=== PATIENT | female | born 2000 ===

== ENCOUNTER 2025-03-12 08:09 | Observation (INO) | payer BC ==
[2025-03-12] MEDS ORDERED: Ondansetron PF 4 MG/2 ML Vial ONE ×2 (08:49→11:54)
[2025-03-12 09:00] LABS: CAUTI Indications for Culture Pelvic or flank pain; Glucose, Urine (Dipstick) Normal (Negative); Leukocyte 75 Leu/uL (Negative); Protein, Urine (Dipstick) Negative (Neg-Trace); Specific Gravity, Urine 1.027 (1.002-1.036); Yeast-Budding Rare HPF (None Seen)
[2025-03-12 09:01] LABS: Bacteria/HPF 1+ HPF (None Seen); Pregnancy Test - Urine (BHCG) Negative (Negative); Pregu Control Background? CLEAR/WHITE (CLR/WHITE); Pregu Control Bar Appear? YES (CONTROL BAR); Urine Culture Reflex No No
[2025-03-12 09:01] LABS: #Basophils 0.05 10x3/uL (0.0-0.2); #Eosinophils Less than 0.03 10x3/uL (0.0-0.7); #Monocytes 1.55 10x3/uL (0.11-0.59); #Neutrophils 19.27 10x3/uL (1.40-6.50); %Basophils 0.2 % (0.0-1.0); %Eosinophils 0.1 % (0.0-10.0); %Lymphocytes 8.0 % (21.0-51.0); %Monocytes 6.8 % (0.0-10.0); %Neutrophils 84.4 % (42.0-75.0); Hematocrit 39.0 % (36.0-47.0); Hemoglobin 13.2 g/dL (12.0-16.0); Mean Corpuscular Hemoglobin 29.4 pg (27.0-31.0); Mean Corpuscular Volume 86.9 fL (78.0-98.0); Platelet Count 328 10x3/uL (130-400); Red Blood Cell (RBC) Count 4.49 mill/uL (4.20-5.40); White Blood Cell (WBC) Count 22.83 10x3/uL (4.8-10.8)
[2025-03-12 09:23] LABS: ALT (SGPT) 13 U/L (Less than 34); AST (SGOT) 31 U/L (11-34); Albumin 4.4 g/dL (3.1-4.5); Alkaline Phosphatase 73 U/L (40-110); Anion Gap 13 mmol/L (10-20); BUN (Urea Nitrogen) 10 mg/dL (7.0-18.7); Bilirubin, Total 0.6 mg/dL (0.3-1.2); Calc. Creatinine Clearance 0 mL/min (70-130); Calcium 9.3 mg/dL (7.8-10.44); Carbon Dioxide 24 mmol/L (22-29); Chloride 102 mmol/L (98-107); Globulin 3.4 g/dL (2.4-3.5); Glucose 134 mg/dL (70-105); Potassium 3.8 mmol/L (3.5-5.1); Sodium 135 mmol/L (136-145)
[2025-03-12] MEDS ORDERED: Ondansetron PF 4 MG/2 ML Vial IVP PRN (10:26)
[2025-03-12] MEDS ORDERED: Dextrose 50% Abboject 50 ML SYRINGE SLOW IVP PRN (10:26)
[2025-03-12] MEDS ORDERED: Glucagon 1 MG/ML KIT IM PRN (10:26)
[2025-03-12] MEDS ORDERED: Acetaminophen 325 MG TAB PO PRN (10:26)
[2025-03-12] MEDS ORDERED: hydrALAZINE 20 MG/ML VIAL SLOW IVP PRN (10:26)
[2025-03-12] MEDS ORDERED: Rocuronium Bromide 10 MG/ML (10ML VIAL) ONE (11:04)
[2025-03-12] MEDS ORDERED: fentaNYL PF 100 MCG/2 ML SYRINGE ONE ×2 (11:05→15:04)
[2025-03-12] MEDS ORDERED: Bupivacaine 0.25% HCL 30 ML VIAL ONE (11:21)
[2025-03-12] MEDS ORDERED: SUCCINYLCHOLINE/SOD CL,ISO/PF 200 MG/10 ML SYRINGE FS ONE (12:05)
[2025-03-12] MEDS ORDERED: PROPOFOL 200 MG/20 ML VIAL ONE (12:05)
[2025-03-12] MEDS ORDERED: Iopamidol-370 76% 500 ML MDV (1 ML CHARGE) ONE (12:07)
[2025-03-12] MEDS ORDERED: SUGAMMADEX SODIUM 200 MG/2 ML VIAL ONE (12:19)
[2025-03-12] MEDS: Ketorolac Tromethamine 30 MG (1 mL) VIAL IVP SCH (14:26)
[2025-03-12 19:27] VITALS: BMI 25.2
[2025-03-12 19:52] VITALS: BP 97/64; TEMP 98
[2025-03-12] MEDS ORDERED: Famotidine 20 MG TAB PO SCH (21:00)
[2025-03-12] MEDS ORDERED: Famotidine/PF 20 mg/2ml Vial SLOW IVP SCH (21:00)
== END 2025-03-12 21:15 | disposition home or self-care (01) ==
LOC: ERS 08:09 → SDC/OP 11:43 → MSONC 17:35
PROVIDERS: ADMIT Colon & Rectal Surgery; ATTEND Colon & Rectal Surgery
PROC: 0DTJ4ZZ Resection of Appendix, Percutaneous Endoscopic Approach (ICD-10-PCS; principal; 2025-03-12)
DX: K35.80 Unspecified acute appendicitis (principal)
CPT/HCPCS: 74177; 80053; 81001; 81025; 85025; 87070; 87205; 88304; 96365; 96375; A4649; G0378; J0169; J0665; J1100; J1308; J1885; J2250; J2270; J2405; J2543; J2704; Q9967